=== PATIENT | male | born 1965 | race Caucasian/White ===

== ENCOUNTER 2018-02-26 10:30 | Outpatient (RCR) | payer OTHER, SELFPAY ==
--- NOTE | 2018-02-02 11:20 | HP.PTEVAL_ITS ---
Patient's Visit Information JABARI ROWLEY is a 52 year old M referred to Physical Therapy by Kev Still with a diagnosis of BACK PAIN. Date of Evaluation: 02/02/18 Physical Therapist: Eryn Kan Visit Plan Frequency: 1x/Week Duration: 4-6 Weeks Plan: SERENE'S EXTENSION PRINCIPAL OF TREATMENT INDICATED. US, E-STIM AND MH NEEDED. POSTURE CORRECTION/STRENGTHENING, INSTRUCTION IN APPROPRIATE BODY MECHANICS AND ACTIVITY MODIFICATIONS. DLS STARTING WITH A NEUTRAL SPINE PROGRESSING ROM TOLERATED. RUSSELL LE ROM, STRETCHING AND STRENGTHENING. HEP INSTRUCTION. 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 Disability: NO. Present symptoms: LOW BACK, LEFT BUTTOCK, THIGH, LEG AND FOOT SX'S. MOSTLY PAIN. NUMBNESS LEFT LEG. Present since: LAST THURSDAY. Pain Scale: 7/10. Commenced as a result of: MOVING/LIFTING A LOT OF TABLES FOR FAMILY REUNIONS. Symptoms at onset: LOW BACK. Worse: BENDING AND SITTING. Better: STANDING. Previous history/Previous treatment: HISTORY OF CHIROPRACTIC TREATMENTS NEEDED. Gait: LIMPING ON LLE. Difficulty initiating urinatin: NO. Unexplained weight loss: NO. Imaging: NO. PMH: UNREMARKABLE - Objective Sitting/Standing Posture: POOR. Lordosis: NORMAL. Lateral shift: NO. Relevant shift: N/A. Active Correction of posture: BETTER. Other Observations : INDEP GAIT INTO PT WITHOUT ANY AD'S LIMPING ON THE LLE AND WITH INCREASED TRUNK FLEXION. Motor deficit: RUSSELL LE STRENGTH 5/5 WITH MMT'ING EXCEPT HIPS GRADED 4/5. Sensory deficit: NO. ROM deficit: TIGHT RUSSELL HS'S AND HIP EXTERNAL ROTATORS. Dural Signs: POSITIVE LLE. Lumbar mvmt loss: flex - MOD. ext - MOD. R SG - MOD. L SG - MOD. INCREASED PAIN WITH LUMBAR FLEXION TESTING. Core strength: POOR. Palpation: NO ACUTE TENDERNESS. INCREASED MUSCLE TONE RUSSELL PARASPINALS. OTHER: REP EIL RESULTS IN DECREASED LLE SX'S AND POSITIVE MECHANICAL RESPONSE OF INCREASED ROM. GOOD RESPONSE TO ALL INTERVENTIONS TODAY - SEE BELOW. - Goals Goal 1:: DECREASE C/O BACK AND LLE SX'S Goal Time Frame: 4-6 Weeks Goal 2:: IMPROVE PERSONAL CARE, LIFTING, SITTING, TRAVEL, EMPLOYMENT/ HOMEMAKING AND LEISURE FUNCTION Goal Time Frame: 4-6 Weeks Goal 3:: INSTRUCT IN PROPHYLAXIS Goal Time Frame: 4-6 Weeks - Rehabilitation Potential Rehabilitation Potential: Fair - Anticipated Interventions Patient/Client Instruction: Educate patient on: Condition, Plan of Care, Risk Factors, Benefits of Fitness Program For the Purpose of:: To improve self management Therapeutic Exercise to Include: Strength training, Body mechanics, Postural training, Flexibilty training, Active ROM, Dynamic Lumbar Stabilization, Serene Exercises For the Purpose of:: To decrease pain, To increase ROM, To improve muscle performance and motor function, To increase tolerance to activity/condition/ position, To improve ability of physical actions for home/community/work/leisure , To improve gait and locomotor functions IF ES: Yes Cryotherapy (ice pack, ice massage): Yes Thermo therapy (hot pack): Yes Ultrasound (thermal/non thermal): Yes For the Purpose of:: To decrease pain, To decrease swelling/inflammation, To increase ROM Thank you for the opportunity to evaluate your patient. For Medicare and Medicare HMO plans, please review the plan of care and approve it. It will need to be FAXED BACK to us at [phone] for Medicare purposes. Please let me know if there are questions or concerns regarding this plan of care. Physician Signature: Date:
--- NOTE | 2018-02-26 11:11 | HP.PTDCSUM ---
HP - PT D/C Summary It has been my pleasure to treat JABARI ROWLEY under orders from Kev Still, for the diagnosis of BACK PAIN for a total of 8 visit(s). Discharge Date: Please see the following information for a summary of their discharge status. - Subjective Subjective: PATIENT REPORTS HE FEELS REALLY GOOD. STILL HAS SOME SX IN THE FOOT BUT FEELS IT IS GETTING BETTER. REPORTS THE STIM HELPED AFTER THE STRETCHING LAST VISIT. PATIENT REPORTS HE IS 95% PLUS BETTER. - Pain BACK Pain Intensity (Out of 10): 0 LLE Pain Intensity (Out of 10): 1 - Overall Improvement % Improvement: 95 - Objective Objective/Function: ALL GOALS MET. UPON EXAM, LUMBAR MVMT LOSS IS FOLLOWS: FLEX - NIL, EXT - MIN, RSG - NIL, LEFT SG - MIN. PATIENT DENIES PAIN WITH LUMBAR ROM TESTING ALL PLANES. PATIENT TOLERATED ALL TREATMENT WELL TODAY AND DENIES BACK, LEG OR INCREASED FOOT SX'S WITH INTERVENTIONS. LUMBAR OSWESTRY HAS IMPROVED FROM 15 TO 0. - Goals Goal 1:: DECREASE C/O BACK AND LLE SX'S Goal Progress: Goal Met Goal 2:: IMPROVE PERSONAL CARE, LIFTING, SITTING, TRAVEL, EMPLOYMENT/HOMEMAKING AND LEISURE FUNCTION Goal Progress: Goal Met Goal 3:: INSTRUCT IN PROPHYLAXIS Goal Progress: Goal Met - Plan Plan: D/C TO [facility] AND FOLLOW UP WITH DR. STILL NEEDED. PATIENT IS AGREEABLE. - D/C Information If there are questions or concerns regarding this patient's physical therapy, please feel free to call me at [phone]. Thank you for the referral of this patient. Sincerely, Eryn Rey
== END 2018-02-26 19:00 | disposition home or self-care (01) ==
LOC: PT 10:30
PROVIDERS: Family Provider Family Medicine; PCP Family Medicine; Visit Provider Family Medicine
DX: M54.9 Dorsalgia, unspecified (principal)
CPT/HCPCS: 97014; 97035; 97110; 97162; 97164; 97530; G0283

== ENCOUNTER → 2018-03-29 11:54 | Outpatient (CLI) | payer OTHER, SELFPAY ==
--- NOTE | 2018-03-29 11:59 | RAD_ITS ---
STUDY: X-RAY - LUMBAR SPINE REASON FOR EXAM: Male, 52 years old. Lower back pain. TECHNIQUE: 5 view(s) of the lumbar spine were obtained. COMPARISON: None FINDINGS: Normal lumbar lordosis. There is no substantial scoliosis. There is a normal alignment of the vertebrae. There is multilevel endplate spondylosis of the lumbar vertebrae. There is multi-level degenerative disc disease with multi-level disc space narrowing. The soft tissue structures are unremarkable. RAD/L/S Spine Min 4 Views IMPRESSION: Degenerative changes of the spine, as detailed above. Electronically Signed: Judy Taylor MD at 17:14 EDT Tel , Service support ,
== END ==
PROVIDERS: Family Provider Family Medicine; PCP Family Medicine; Referring Provider Family Medicine; Visit Provider Family Medicine
DX: M54.40 Lumbago with sciatica, unspecified side (principal)
CPT/HCPCS: 72110

== ENCOUNTER → 2018-04-12 09:22 | Outpatient (CLI) | payer OTHER, SELFPAY ==
--- NOTE | 2018-04-12 09:27 | MRI_ITS ---
STUDY: MRI LUMBAR SPINE WITHOUT CONTRAST REASON FOR EXAM: Male, 52 years old. LOW BACK PAIN, SCIATICA left side. TECHNIQUE: Standardized fat and water weighted pulse sequences were obtained in the sagittal and axial planes. COMPARISON: None FINDINGS: T12-L1: There is minimal disc space narrowing and endplate spondylosis. There is no significant disc herniation, central canal or foraminal stenosis. Normal lumbar lordosis. There is no substantial scoliosis. Normal conus medullaris that terminates at the L1 L1-2: There is mild disc space narrowing and endplate spondylosis. There is no significant disc herniation, central canal or foraminal stenosis. L2-3: Normal endplates. Normal disc height, hydration and morphology. Normal bilateral facet joints. Normal central canal and bilateral lateral recesses. Normal bilateral intervertebral neural foramina. L3-4: Normal endplates. Normal disc height, hydration and morphology. Normal bilateral facet joints. Normal central canal and bilateral lateral recesses. Normal bilateral intervertebral neural foramina. L4-5: There is mild disc space narrowing and endplates spondylosis. There is facet arthropathy with minimal anterolisthesis and minimal disc bulge without significant central canal stenosis. There is minimal bilateral foraminal stenosis. L5-S1: There is mild disc space narrowing and endplates spondylosis. There is mild disc bulge with left paracentral protrusion resulting in moderate left lateral recess narrowing. There is no significant central canal or foraminal stenosis. There is moderate facet arthropathy. Normal visualized sacral ala. Normal visualized paraspinous soft tissue structures. MRI/Spine Lumbar (Routine) IMPRESSION: L4/L5: Minimal degenerative anterolisthesis. L5/S1: Disc protrusion with moderate left lateral recess narrowing. Electronically Signed: Trip Miller MD at 10:21 EDT Tel , Service support ,
== END ==
PROVIDERS: Family Provider Family Medicine; PCP Family Medicine; Referring Provider Family Medicine; Visit Provider Family Medicine
DX: M54.40 Lumbago with sciatica, unspecified side (principal)
CPT/HCPCS: 72148

== ENCOUNTER → 2018-10-28 | Outpatient (CLI) | payer OTHER, SELFPAY ==
[2017-07-03 09:02] VITALS: BMI 34.5
[2018-10-28 17:14] LABS: Bacteria 0 SEEN /hpf (None Seen); Mucous, Urine 0 SEEN /hpf (<or=2+); Red Blood Cells-Urine 0 SEEN /hpf (0-5); White Blood Cells 0 SEEN /hpf (0-5)
[2018-10-28 18:56] LABS: Color, Urine Yellow (Yellow); Glucose, Dipstick Normal (Normal); Ketone-Dipstick Negative (Negative); Leukocyte Esterase-Dipstick Negative /ul (Negative); Nitrite-Dipstick Negative (Negative); Occult Blood-Urine Negative /ul (Negative); Protein-Dipstick Negative (Negative); Urine Bilirubin Dipstick Negative (Negative); Urine Clarity Clear (Clear); Urine Urobilinogen Normal (Normal)
[2018-10-28 19:20] LABS: Squamous Epithelial Cells - UA 0-5 SEEN /hpf (0-5)
== END | disposition home or self-care (01) ==
LOC: LABSPEC 17:06
PROVIDERS: Family Provider Family Medicine; PCP Family Medicine; Referring Provider Nurse Practitioner Adult Health; Visit Provider Nurse Practitioner Adult Health
DX: R31.29 Other microscopic hematuria (principal)
CPT/HCPCS: 81001; 87086

== ENCOUNTER → 2019-05-18 08:39 | Outpatient (CLI) | payer OTHER, SELFPAY ==
[2019-05-18 08:31] VITALS: BMI 27.1
--- NOTE | 2019-05-18 08:40 | RAD_ITS ---
STUDY: X-RAY - RIGHT SHOULDER REASON FOR EXAM: Male, 53 years old. Pain TECHNIQUE: 4 view(s) of the shoulder. COMPARISON: None. FINDINGS: Normal glenohumeral articulation. Normal acromioclavicular joint. Normal acromion. Normal humeral head and visualized proximal humerus. The soft tissue structures are unremarkable. Normal visualized pulmonary apex. RAD/Shoulder min 2 Views IMPRESSION: Normal x-ray examination of the shoulder. Electronically Signed: Urbano Lua MD at 19:00 EST , Service support ,
--- NOTE | 2019-05-18 08:40 | RAD_ITS ---
STUDY: X-RAY - LEFT SHOULDER REASON FOR EXAM: Male, 53 years old. Pain TECHNIQUE: 4 view(s) of the shoulder. COMPARISON: None. FINDINGS: Normal glenohumeral articulation. Normal acromioclavicular joint. Normal acromion. Normal humeral head and visualized proximal humerus. The soft tissue structures are unremarkable. Normal visualized pulmonary apex. RAD/Shoulder min 2 Views IMPRESSION: Normal x-ray examination of the shoulder. Electronically Signed: Urbano Lua MD at 18:45 EST , Service support ,
== END ==
PROVIDERS: Family Provider Family Medicine; PCP Family Medicine; Referring Provider Orthopaedic Surgery; Visit Provider Orthopaedic Surgery
DX: M25.511 Pain in right shoulder (principal); M25.512 Pain in left shoulder
CPT/HCPCS: 73030

== ENCOUNTER → 2019-06-13 11:41 | Outpatient (CLI) | payer OTHER, SELFPAY ==
[2019-05-18 09:10] VITALS: BMI 27.1
[2019-06-13 14:04] LABS: Anion Gap 3 (5-15); BUN 24 mg/dL (7-18); Calcium,Total 8.2 mg/dL (8.5-10.1); Chloride 107 mmol/L (98-107); Creatinine, Serum 1.09 mg/dL (0.70-1.30); EST Glomerular Filtration Rate 75 mL/min (>60); Est Glom Filt Rate - Afr Amer 90 mL/min (>60); Glucose 94 mg/dL (74-106); Potassium 4.4 mmol/L (3.5-5.1); Sodium Level 138 mmol/L (136-145)
== END ==
PROVIDERS: Family Provider Family Medicine; PCP Family Medicine; Visit Provider Nurse Practitioner Family
DX: I10 Essential (primary) hypertension (principal)
CPT/HCPCS: 36415; 80048

== ENCOUNTER 2019-06-16 12:30 | Outpatient (RCR) | payer OTHER, SELFPAY ==
[2019-05-18 09:10] VITALS: BMI 27.1
--- NOTE | 2019-05-24 08:55 | HP.PTEVAL ---
Patient's Visit Information JABARI ROWLEY is a 53 year old M referred to Physical Therapy by Neil Trejo DO with a diagnosis of L adhesive capsulitis, R shoulder pain.. Date of Evaluation: 05/24/19 Physical Therapist: MATT Cheung - Visit Plan Frequency: 2x /Week Duration: 6 Weeks Plan: 2X/ week for 4 weeks for L shoulder PROM/ AAROM/ AROM, joint mobs to increase ROM, scapular and RC strengthening (especially ER) on the L with HEP and modalities as needed - Subjective Findings: Pt reports that his L shoulder is so bad that he can not sleep. This has gone on since January and he got a shot in his shoulder. If her rolls over onto his L shoulder he will get pain. He has more ROM since the shot on 05-18-19. He still has aching all the time. He is R handed. He has no N&T. He has not noticed any weakness. - Pain L shoulder pain Pain Intensity (Out of 10): 0 Pain Intensity Range: 3 Comment: with movement - Objective Bicep 2+/3 B. Postue: sits with fair sitting posture with slightly rounded shoulders. L shoulder AROM: flexion 125, abd 105, ER 45, IR PSIS. R shoulder AROM: flexion 165, abd 165, ER 75, IR T12. PROM of the L shoulder is tight at end range but able to get a little further PROM than AROM. R shld MMT; ER 3+/5, IR 4-/5, abd 4-/5, flex 4-/5. L shld MMT: ER 4-/5, IR 4/5, Flex/abd 4/5 - Goals Goal 1:: I HEP Goal Time Frame: 4-6 Weeks Goal 2:: Be able to roll onto the L shoulder without pain while sleeping Goal Time Frame: 4-6 Weeks Goal 3:: Increase L shoulder AROM to equal that of the R or better (at time of eval: L shoulder AROM: flexion 125, abd 105, ER 45, IR PSIS. R shoulder AROM: flexion 165, abd 165, ER 75, IR T12. PROM of the L shoulder is tight at end range but able to get a little further PROM than AROM). Goal Time Frame: 4-6 Weeks Goal 4:: Increase L shoulder strength by 1/2 muscle grade (at time of eval: (R shld MMT; ER 3+/5, IR 4-/5, abd 4-/5, flex 4-/5. L shld MMT: ER 4-/5, IR 4/5, Flex/abd 4/5). Goal Time Frame: 4-6 Weeks Goal 5:: Decrease pain with movement to 1/10 with ADL's Goal Time Frame: 4-6 Weeks - Rehabilitation Potential Rehabilitation Potential: Good - Anticipated Interventions Patient/Client Instruction: Educate patient on: Condition, Plan of Care For the Purpose of:: To decrease pain, To increase ROM, To improve nutrient delivery to tissue, To improve muscle performance and motor function, To improve ability to perform ADL's, To increase tolerance to activity/condition/position, To improve performance and independence with ADL's, To improve health of tissue, To increase flexibility/ROM Therapeutic Exercise to Include: Strength training, Flexibilty training, Passive ROM, Active ROM, Scapular Strength/Stabilization For the Purpose of:: To decrease pain, To increase ROM, To improve nutrient delivery to tissue, To improve muscle performance and motor function, To improve ability to perform ADL's, To increase tolerance to activity/condition/position, To improve health of tissue, To decrease soft tissue restriction, To increase flexibility/ROM Manual Therapy Techniques to Include: Trigger point massage, Mobilization, Passive ROM, Soft tissue mobilization For the Purpose of:: To decrease pain, To increase ROM, To improve nutrient delivery to tissue, To improve health of tissue, To decrease soft tissue restriction, To increase flexibility/ROM IF ES: Yes Cryotherapy (ice pack, ice massage): Yes Thermo therapy (hot pack): Yes Ultrasound (thermal/non thermal): Yes For the Purpose of:: To decrease pain, To improve nutrient delivery to tissue Thank you for the opportunity to evaluate your patient. For Medicare and Medicare HMO plans, please review the plan of care and approve it. It will need to be FAXED BACK to us at [phone] for Medicare purposes. For Medicare only, by signing this I certify the plan of care. Please let me know if there are questions or concerns regarding this plan of care. Physician Signature: Date:
--- NOTE | 2019-06-16 13:06 | HP.PTDCSUM ---
HP - PT D/C Summary It has been my pleasure to treat JABARI ROWLEY under orders from Neil Trejo DO, for the diagnosis of L adhesive capsulitis, R shoulder pain. for a total of 8 visit(s). Discharge Date: 06/16/19 Please see the following information for a summary of their discharge status. - Subjective Subjective: Pt has no pain unless he moves it the wrong way.. He feels that he has more ROM. Uncomfortable when he rolls on to his L side but does not wake him up. - Pain L shoulder pain Pain Intensity (Out of 10): 2 - Overall Improvement % Improvement: 90 - Objective Objective/Function: L AROM: flexion 149 degrees, and abd 158 degrees and Er 52 degrees, and IR L2. Strength: - Goals Goal 1:: I HEP Goal Progress: Goal Met Goal 2:: Be able to roll onto the L shoulder without pain while sleeping Goal Progress: Progressing Goal 3:: Increase L shoulder AROM to equal that of the R or better (at time of eval: L shoulder AROM: flexion 125, abd 105, ER 45, IR PSIS. R shoulder AROM: flexion 165, abd 165, ER 75, IR T12. PROM of the L shoulder is tight at end range but able to get a little further PROM than AROM). Goal Progress: Progressing Goal 4:: Increase L shoulder strength by 1/2 muscle grade (at time of eval: (R shld MMT; ER 3+/5, IR 4-/5, abd 4-/5, flex 4-/5. L shld MMT: ER 4-/5, IR 4/5, Flex/abd 4/5). Goal Progress: Goal Met Goal 5:: Decrease pain with movement to 1/10 with ADL's Goal Progress: Goal Met - Plan Plan: 2X/ week for 4 weeks for L shoulder PROM/ AAROM/ AROM, joint mobs to increase ROM, scapular and RC strengthening (especially ER) on the L with HEP and modalities as needed - D/C Information Discharge Comments: DC PT to HEP If there are questions or concerns regarding this patient's physical therapy, please feel free to call me at [phone]. Thank you for the referral of this patient. Sincerely, Maria Victoria Quispe, MPT
== END 2019-06-16 19:00 | disposition home or self-care (01) ==
LOC: PT 12:30
PROVIDERS: Family Provider Family Medicine; PCP Family Medicine; Referring Provider Orthopaedic Surgery; Visit Provider Orthopaedic Surgery
DX: M75.02 Adhesive capsulitis of left shoulder (principal); M25.511 Pain in right shoulder
CPT/HCPCS: 97110; 97161

== ENCOUNTER → 2021-05-20 12:11 | Outpatient (CLI) | payer OTHER, SELFPAY ==
[2021-05-20 15:43] LABS: Microalbumin,Random Urine 5.7 mg/L (NO RANGE EST.)
[2021-05-20 15:47] LABS: AST(SGOT) 13 U/L (15-37); Alanine Aminotransfer ALT/SGPT 25 U/L (16-61); Albumin, Serum 3.9 g/dL (3.2-5.0); Alkaline Phosphatase 96 U/L (45-117); Anion Gap 6 (5-15); BUN 18 mg/dL (7-18); BUN/Creat Ratio 17.5 RATIO (10-20); Calcium,Total 9.1 mg/dL (8.5-10.1); Chloride 104 mmol/L (98-107); Creatinine, Serum 1.03 mg/dL (0.70-1.30); EST Glomerular Filtration Rate 79 mL/min (>60); Est Glom Filt Rate - Afr Amer 96 mL/min (>60); Globulin 3.9 g/dL (2.2-4.2); Glucose 92 mg/dL (74-106); Potassium 3.7 mmol/L (3.5-5.1); Protein, Total 7.8 g/dL (6.4-8.2); Sodium Level 136 mmol/L (136-145)
== END ==
PROVIDERS: PCP Family Medicine; Referring Provider Family Medicine; Visit Provider Family Medicine
DX: I10 Essential (primary) hypertension (principal)
CPT/HCPCS: 36415; 80053; 82043; 82570

== ENCOUNTER → 2022-02-10 | Outpatient (CLI) | payer OTHER, SELFPAY ==
[2022-02-10 15:30] LABS: AST(SGOT) 10 U/L (15-37); Alanine Aminotransfer ALT/SGPT 27 U/L (16-61); Albumin, Serum 3.9 g/dL (3.2-5.0); Alkaline Phosphatase 82 U/L (45-117); Anion Gap 6 (5-15); BUN 19 mg/dL (7-18); BUN/Creat Ratio 17.8 RATIO (10-20); Calcium,Total 8.9 mg/dL (8.5-10.1); Chloride 105 mmol/L (98-107); Cholesterol 175 mg/dL (200); Creatinine, Serum 1.07 mg/dL (0.70-1.30); EST Glomerular Filtration Rate 75 mL/min (>60); Est Glom Filt Rate - Afr Amer 91 mL/min (>60); Globulin 3.8 g/dL (2.2-4.2); Glucose 111 mg/dL (74-106); High Density Lipoprotein 28 mg/dL; Potassium 4.8 mmol/L (3.5-5.1); Protein, Total 7.7 g/dL (6.4-8.2); Sodium Level 138 mmol/L (136-145); Triglycerides 184 mg/dL; Very Low Density Lipoprotein 37 mg/dL (5-40)
== END | disposition home or self-care (01) ==
LOC: MFPLAB 11:14
PROVIDERS: PCP Family Medicine; Referring Provider Family Medicine; Visit Provider Family Medicine
DX: E78.1 Pure hyperglyceridemia (principal); I10 Essential (primary) hypertension
CPT/HCPCS: 36415; 80053; 80061

== ENCOUNTER → 2022-02-18 | Outpatient (CLI) | payer OTHER, SELFPAY ==
[2022-02-18 18:20] LABS: Microalbumin,Random Urine 15.6 mg/L (NO RANGE EST.)
[2022-02-18 18:24] LABS: PSA,Total - Annual Screen 2.03 ng/mL (0.00-4.00)
== END | disposition home or self-care (01) ==
LOC: MFPLAB 15:01
PROVIDERS: PCP Family Medicine; Visit Provider Family Medicine
DX: Z00.00 Encounter for general adult medical examination without abnormal findings (principal); I10 Essential (primary) hypertension; N52.9 Male erectile dysfunction, unspecified; Z12.5 Encounter for screening for malignant neoplasm of prostate
CPT/HCPCS: 36415; 82043; 82570; 84153; 84402; 84403; G0103

== ENCOUNTER → 2022-08-12 | Outpatient (CLI) | payer OTHER, SELFPAY ==
[2022-08-17 08:30] LABS: Testosterone Free 9.9 pg/mL (7.2-24.0)
== END | disposition home or self-care (01) ==
LOC: MTLAB 09:02
PROVIDERS: PCP Family Medicine; Referring Provider Family Medicine; Visit Provider Family Medicine
DX: R79.89 Other specified abnormal findings of blood chemistry (principal)
CPT/HCPCS: 36415; 84402; 84403

== ENCOUNTER → 2022-09-16 | Outpatient (CLI) | payer OTHER, SELFPAY ==
[2022-09-16 18:07] LABS: Absolute Lymphocyte Count 2.21 X10^3/uL (0.83-4.51); Absolute Neutrophil Count 4.9 X10^3/uL (2.0-7.7); Basophil# 0.08 X10^3/uL; Eosinophil# 0.21 X10^3/uL; Eosinophils% 2.6 % (0-5); Hematocrit 43.3 % (40-54); Hemoglobin 14.7 g/dL (13.0-16.5); Lymphocyte # 2.21 X10^3/ul (0.83-4.51); Mean Corp Hgb Conc 33.9 g/dL (32-36); Mean Corpuscular Hgb 29.4 pg (27.0-32.0); Mean Corpuscular Volume 86.6 fL (80-94); Mean Platelet Vol. 9.7 fl (6.2-12.0); Monocyte# 0.72 X10^3/uL; Monocyte% 8.8 % (0-10); NRBC Flagged by Analyzer 0 % (0-5); Neutrophil # 4.94 X10^3/uL (2.7-7.7); Neutrophil % 60.1 % (47-70); Platelet Count 260 K/mm3 (150-450); RBC Distribution Width CV 13.2 % (11.6-14.6); RBC Distribution Width SD 41.4 fl (35.1-43.9); White Blood Count 8.2 K/mm3 (4.4-11.0)
[2022-09-16 21:20] LABS: ALB/GLOB Ratio 1.1 RATIO (0.9-2.4); AST(SGOT) 28 U/L (15-37); Alanine Aminotransfer ALT/SGPT 44 U/L (16-61); Albumin, Serum 3.8 g/dL (3.2-5.0); Alkaline Phosphatase 95 U/L (45-117); Anion Gap 8 (5-15); BUN 16 mg/dL (7-18); BUN/Creat Ratio 17.4 RATIO (10-20); Calcium,Total 7.9 mg/dL (8.5-10.1); Chloride 103 mmol/L (98-107); Creatinine, Serum 0.92 mg/dL (0.70-1.30); EST Glomerular Filtration Rate 90 mL/min (>60); Est Glom Filt Rate - Afr Amer 109 mL/min (>60); Globulin 3.5 g/dL (2.2-4.2); Glucose 128 mg/dL (74-106); Potassium 3.8 mmol/L (3.5-5.1); Protein, Total 7.3 g/dL (6.4-8.2); Sodium Level 136 mmol/L (136-145); Thyroid Stim Hormone (TSH) 2.34 uIU/mL (0.358-3.74)
== END | disposition home or self-care (01) ==
LOC: MTLAB 16:00
PROVIDERS: PCP Family Medicine; Referring Provider Family Medicine; Visit Provider Family Medicine
DX: E66.9 Obesity, unspecified (principal); I10 Essential (primary) hypertension
CPT/HCPCS: 36415; 80053; 84443; 85025

== ENCOUNTER → 2023-08-21 | Outpatient (CLI) | payer OTHER, SELFPAY | END | disposition home or self-care (01) | LOC: MFPLAB 08:19 | PROVIDERS: PCP Family Medicine; Visit Provider Family Medicine | DX: Z00.00 Encounter for general adult medical examination without abnormal findings (principal) ==

== ENCOUNTER 2023-09-18 12:05 | Day surgery (SDC) | payer OTHER, SELFPAY ==
--- NOTE | 2023-09-18 | IMM_PTH ---
PATIENT: JABARI ROWLEY [place] [facility] [place][id number] AGE/SX: 57/M ROOM: RE09/18/[address]: Dr. Serina Fang MD : 1965 BED: DIS: 09/18/2023 SPEC #: [id number] RECD: 09/22/23 10:36 STATUS: STEPHANIE REQ #: [id number] MARISEL: 09/18/23 00:[address]: Serina Fang DEPT: IMMUNOHISTOCHEMISTRY RECD BY: Luis Bhardwaj ENTERED: 09/22/23 10:38 SP TYPE: IMMUNO OTHR DR: Dr. Kev Still MD Tissues: Skin of chest Procedures: MART1 (add) S100 (initial) PHYSICIAN & INSTITUTION [place] [phone] SPECIMEN INFORMATION: Tissue Source: Chest lesion Clinical Info: Neoplasm of uncertain behavior of skin of chest Specimen Number: [id number] CPT code: 56352,28972 METHODOLOGY: Deparaffinized sections of prefer/formalin-fixed tissue or PAP/DQ stained slides are incubated with monoclonal/polyclonal antibodies/oligonucleotide probes. Localization is made via biotin free immunoperoxidase method. Appropriate controls are performed and reacted as expected. Results on target cell population are indicated in the following table: RESULTS: ANTIBODY / CLONE RESULT S-100 (4C4.9) positive MART-1 (A-103) positive These tests were developed and their performance characteristics determined by [facility]. They may not have been cleared or approved by the U.S. Food and Drug Administration. The FDA has determined that such clearance or approval is not necessary. The above immunohistochemical/dualISH markers are ordered and reviewed by the Pathologist. 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 See comment. SHAUN/ 09/30/23 Comment: The specimen is sent to [facility] for expert opinion, reviewed by Dr. Calderon and the above diagnosis is rendered. The complete report is viewable in the patient's EMR.
--- NOTE | 2023-09-18 | LES_PTH ---
PATIENT: JABARI ROWLEY LOC: [facility] [place] U#:[id number] AGE/SX: 57/M ROOM: RE09/18/[address]: Dr. Serina Fang MD : 1965 BED: DIS: 09/18/2023 SPEC #: [id number] RECD: 09/18/23 16:39 STATUS: STEPHANIE REKaushik #: [id number] MARISEL: 09/18/23 00:[address]: Serina Fang DEPT: SURGICAL PATHOLOGY RECD BY: Chele Murray ENTERED: 09/21/23 08:59 SP TYPE: Lesion OTHR DR: Dr. 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 See comment. / 09/30/23 COMMENT The specimen is sent to [facility] for expert opinion, reviewed by Dr. Calderon and the above diagnosis is rendered. The complete report is viewable in the patient's EMR. Dr. Calderon also comment that the margins are free at the planes of section examined. Immunohistochemistry ([id number]) supports the above diagnosis. Case has been reviewed in consultation with Dr. Lucio who concurs with the above diagnosis. IDC:AM MICROSCOPIC DESCRIPTION Slides are reviewed. GROSS DESCRIPTION Received in fixative is one container labeled with the patient's name and designated lesion of chest. The specimen consists of horton-white skin ellipse measuring 0.7 x 0.6cm and 0.3cm in thickness. There is a brown lesion on the surface measuring 0.4 x 0.3cm. The specimen is inked, serially sectioned and submitted entirely in one cassette. / 09/21/2023 TC:5 CPT: 91327
[2023-09-18 12:30] VITALS: BP 150/86; PULSE 82; RESP 16; TEMP 36.8; O2SAT 100; BMI 37.0
--- NOTE | 2023-09-18 13:08 | PCM.HP.BLA ---
History and Physical Date of Admission: 09/18/23 Patient here for excision of the lesion of the chest with submission for pathologic evaluation. He is examined and his exam is unchanged from the H&P of 09/02/2023. Assessment & Plan Assessment/Plan (1) Neoplasm of uncertain behavior of skin of chest: PLAN: Plan For excision lesion chest with submission for pathologic evaluation.
[2023-09-18 13:41] VITALS: BP 149/83; BP 159/86; O2SAT 95; O2SAT 97
[2023-09-18] MEDS: Lidocaine 1% /Epi 1:100 9 ML, Sodium Bicarbonate 1 MEQ OPERA.SITE (13:42)
--- NOTE | 2023-09-18 14:01 | DCINST_ITS ---
Discharge Instructions Dressing / Incision Additional Dressing/Incision Instructions:: May shower over the dressing, but do not scrub. If the dressing comes off or is removed, may shower over the site and apply a Band-Aid daily. Take the oral antibiotic (Keflex) 2 times a day until finished. Follow Up Care Please Follow Up With: Serina Fang MD When: In 2 weeks Test Results: Test results from this visit will be discussed in further detail at your follow- up appointment, if applicable. Discharge Plan Admission Attending Provider: Serina Fang Primary Care Provider: Kev Still Discharge Orders/Prescriptions Prescriptions: New cephalexin 500 mg capsule 500 mg PO BID Qty: 10 0RF No Action lisinopril 20 mg tablet 20 mg PO DAILY 30 Days Qty: 30 Patient Comments: take 1 tablet by mouth once daily albuterol sulfate 90 mcg/actuation HFA aerosol inhaler INHALATION 17 Days Qty: 9 Patient Comments: inhale 2 puffs by mouth every 4 hours if needed for cough or shortnessof breath multivitamin tablet 1 tab PO QDAY fluticasone propionate [Flonase Allergy Relief] 50 mcg/actuation spray,suspension 50 mcg INTRANASAL QDAY PRN (Reason: nasal congestion) esomeprazole magnesium [Nexium] 20 mg capsule,delayed release(DR/EC) 20 mg PO QDAY bupropion HCl [Wellbutrin XL] 150 mg tablet extended release 24 hr 150 mg PO QAM Referrals / Follow Up: Kev Still MD [Primary Care Provider] - Disposition Disposition (needs filled in before D/C Order can be placed): Home, Self Care
--- NOTE | 2023-09-18 14:07 | PCM.OPRPT ---
Problems Associated Problem List Diagnoses (1) Neoplasm of uncertain behavior of skin of chest: Report of Operation Date of Procedure: 09/18/23 Pre-Operative Diagnosis: Pigmented neoplasm left chest of uncertain behavior Post-Operative Diagnosis: Same Surgery/Procedure Performed:: Excision lesion of chest (1.5 cm) with intermediate closure Surgeon: Serina Fang Type of Anesthesia: Local Specimen's removed: Pigmented neoplasm Estimated Blood Loss (mL): Minimal Description of Procedure: The patient presents with a growing or changing lesion on his mid chest. He presents for excision with submission for pathologic evaluation. The patient was brought to the operating room and placed on the operating room table in the supine position. The chest is prepped and draped in the usual sterile fashion. 1% Xylocaine with epinephrine is used for local anesthetic. Following this, the site is excised and passed off the operative field to be sent to pathology. Hemostasis is controlled with cautery. The wound is then closed using Monocryl suture in the subcutaneous tissue and dermis. Skin edges are approximated with a running subcuticular Monocryl suture. Further reinforcement the closure is done with a running Prolene suture. Dermabond and Steri-Strips as well as a Tegaderm were applied to the site. He tolerated the procedure well was taken to the recovery area in an awake and stable condition. Needle and sponge counts are correct. Complications None Admit VTE Documentation VTE Mechan Device Prophylaxis: None Reason prophylaxis not ordered:: Treatment Not Indicated
[2023-09-18 14:26] VITALS: BP 150/86; BP 155/86; PULSE 80; RESP 16; TEMP 37.2; O2SAT 98
== END 2023-09-18 14:33 | disposition home or self-care (01) ==
LOC: SDC 12:06 → AC 12:08
PROVIDERS: PCP Family Medicine; Referring Provider Plastic Surgery; Visit Provider Plastic Surgery
PROC: (CPT 11402; principal; 2023-09-18 14:10)
DX: D48.5 Neoplasm of uncertain behavior of skin (principal)
CPT/HCPCS: 11402; 88305; 88341; 88342

== ENCOUNTER → 2024-03-03 | Outpatient (CLI) | payer OTHER, SELFPAY ==
[2024-03-03 10:17] LABS: Absolute Lymphocyte Count 1.93 X10^3/uL (0.83-4.51); Absolute Neutrophil Count 3.5 X10^3/uL (2.0-7.7); Basophil# 0.06 X10^3/uL; Eosinophil# 0.22 X10^3/uL; Eosinophils% 3.6 % (0-5); Hematocrit 44.6 % (40-54); Hemoglobin 14.6 g/dL (13.0-16.5); Lymphocyte # 1.93 X10^3/ul (0.83-4.51); Lymphocyte % 31.4 % (19-41); Mean Corp Hgb Conc 32.7 g/dL (32-36); Mean Corpuscular Hgb 28.5 pg (27.0-32.0); Mean Corpuscular Volume 87.1 fL (80-94); Mean Platelet Vol. 9.3 fl (6.2-12.0); Monocyte# 0.37 X10^3/uL; NRBC Flagged by Analyzer 0 % (0-5); Neutrophil # 3.53 X10^3/uL (2.7-7.7); Neutrophil % 57.5 % (47-70); Platelet Count 247 K/mm3 (150-450); RBC Distribution Width CV 13.1 % (11.6-14.6); RBC Distribution Width SD 41.5 fl (35.1-43.9); Red Blood Count 5.12 M/mm3 (4.6-6.2); White Blood Count 6.1 K/mm3 (4.4-11.0)
[2024-03-03 12:32] LABS: ALB/GLOB Ratio 1.1 RATIO (0.9-2.4); AST(SGOT) 15 U/L (15-37); Alanine Aminotransfer ALT/SGPT 28 U/L (16-61); Albumin, Serum 3.8 g/dL (3.2-5.0); Alkaline Phosphatase 89 U/L (45-117); Anion Gap 4 (5-15); BUN 17 mg/dL (7-18); BUN/Creat Ratio 15.6 RATIO (10-20); Calcium,Total 9.1 mg/dL (8.5-10.1); Chloride 107 mmol/L (98-107); Creatinine, Serum 1.09 mg/dL (0.70-1.30); EST Glomerular Filtration Rate 73 mL/min (>60); Est Glom Filt Rate - Afr Amer 89 mL/min (>60); Globulin 3.6 g/dL (2.2-4.2); Glucose 156 mg/dL (74-106); Protein, Total 7.4 g/dL (6.4-8.2); Sodium Level 136 mmol/L (136-145)
[2024-03-03 13:00] LABS: Microalbumin,Random Urine 54.6 mg/L (NO RANGE EST.)
== END | disposition home or self-care (01) ==
LOC: MFPLAB 09:23
PROVIDERS: PCP Family Medicine; Visit Provider Family Medicine
DX: G47.33 Obstructive sleep apnea (adult) (pediatric) (principal); I10 Essential (primary) hypertension
CPT/HCPCS: 36415; 80053; 82043; 82570; 85025

== ENCOUNTER → 2024-09-12 | Outpatient (CLI) | payer SELFPAY ==
[2024-09-12 13:10] LABS: ALB/GLOB Ratio 1.6 RATIO (0.9-2.4); AST(SGOT) 17 U/L (<=37); Alanine Aminotransfer ALT/SGPT 20 U/L (<=46); Albumin, Serum 4.4 g/dL (3.4-4.8); Alkaline Phosphatase 83 U/L (40-129); Anion Gap 10 (5-15); BUN 16 mg/dL (4-19); BUN/Creat Ratio 14.7 RATIO (10-20); Calcium,Total 9.3 mg/dL (7.6-11.0); Carbon Dioxide 24.3 mmol/L (21.0-32.0); Chloride 103 mmol/L (98-108); Creatinine, Serum 1.07 mg/dL (0.70-1.20); EST Glomerular Filtration Rate 79 (>60); Globulin 2.8 g/dL (2.2-4.2); Glucose 130 mg/dL (70-99); PSA,Total - Annual Screen 2.48 ng/mL (0.02-4.00); Potassium 4.2 mmol/L (3.3-5.1); Protein, Total 7.2 g/dL (5.9-8.4); Sodium Level 138 mmol/L (133-145)
[2024-09-12 16:16] LABS: Microalbumin,Random Urine 16.9 mg/L (NO RANGE EST.)
== END | disposition home or self-care (01) ==
PROVIDERS: PCP Family Medicine; Referring Provider Family Medicine; Visit Provider Family Medicine
DX: I10 Essential (primary) hypertension (principal); Z12.5 Encounter for screening for malignant neoplasm of prostate
CPT/HCPCS: 36415; 80053; 82043; 82570; 84153; G0103